=== PATIENT | male | born 1955 | race Caucasian/White ===

== ENCOUNTER 2021-02-26 13:53 | Inpatient (IN) | payer MEDICARE, MEDICAID ==
[2021-02-26 15:26] LABS: ALT (SGPT) 34 U/L (8-55); AST (SGOT) 30 U/L (5-34); Albumin 3.9 g/dL (3.4-4.8); Alkaline Phosphatase 70 U/L (40-110); Anion Gap 17 mmol/L (10-20); BUN (Urea Nitrogen) 40 mg/dL (8.4-25.7); Bilirubin, Total 0.4 mg/dL (0.2-1.2); Calc. Creatinine Clearance 0 mL/min (70-130); Calcium 9.4 mg/dL (7.8-10.44); Carbon Dioxide 26 mmol/L (23-31); Chloride 97 mmol/L (98-107); Globulin 3.2 g/dL (2.4-3.5); Glucose 183 mg/dL (80-115); Potassium 4.6 mmol/L (3.5-5.1); Protein, Total 7.1 g/dL (5.8-8.1); Sodium 135 mmol/L (136-145)
[2021-02-26 15:56] LABS: #Eosinphils 0.2 10x3/uL (0.0-0.5); #Monocytes 0.4 10x3/uL (0.0-1.1); #Neutrophils 3.3 10x3/uL (1.5-8.4); %Basophils 0.2 % (0.0-2.0); %Lymphocytes 23.3 % (18.0-47.0); %Monocytes 8.2 % (0.0-10.0); %Neutrophils 65.1 % (40.0-75.0); Hemoglobin 11.8 g/dL (13.5-17.5); Mean Corpuscular HGB CONC 33.4 g/dL (32.0-36.0); Mean Corpuscular Hemoglobin 29.1 pg (27.0-33.0); Mean Corpuscular Volume 87.2 fl (81.2-95.1); Mean Platelet Volume 10.4 fl (7.4-10.4); Platelet Count 83 10x3/uL (150-450); RBC Distribution Width 14.2 % (11.5-14.5); Red Blood Cell (RBC) Count 4.05 10x6/uL (4.32-5.72)
[2021-02-26] MEDS ORDERED: Acetaminophen 325 MG TAB PO PRN (17:12)
[2021-02-26] MEDS ORDERED: Senokot S 8.6-50 MG TAB PO PRN (17:12)
[2021-02-26] MEDS ORDERED: Ondansetron PF 4 MG/2 ML Vial IVP PRN (17:12)
[2021-02-26] MEDS ORDERED: Aspirin 325 MG TAB ONE (18:09)
[2021-02-26] MEDS ORDERED: Dextrose 5% in Water 1,000 ML IV PRN (18:17)
[2021-02-26] MEDS ORDERED: HumaLOG 300 UNITS/3 ML VIAL SC PRN (18:17)
[2021-02-26] MEDS ORDERED: Dextrose 50% Abboject 50 ML SYRINGE SLOW IVP PRN (18:17)
[2021-02-26 18:47] LABS: Troponin I Less than 0.010 ng/mL (< 0.028)
[2021-02-26] MEDS ORDERED: hydrALAZINE 20 MG/ML VIAL SLOW IVP PRN (18:57)
[2021-02-26 21:22] LABS: Troponin I 0.013 ng/mL (< 0.028)
[2021-02-26] MEDS: Atorvastatin Calcium 40 MG TAB PO SCH (22:15)
[2021-02-26] MEDS: Sodium Chloride 0.9% 1,000 ML IV SCH (22:15)
[2021-02-26] MEDS: HumaLOG 300 UNITS/3 ML VIAL SC PRN (23:39)
[2021-02-27 06:09] VITALS: BMI 23.8
[2021-02-27] MEDS: HumaLOG 300 UNITS/3 ML VIAL SC PRN (06:28)
[2021-02-27 06:58] LABS: #Eosinphils 0.2 10x3/uL (0.0-0.5); #Monocytes 0.3 10x3/uL (0.0-1.1); %Basophils 0.3 % (0.0-2.0); %Eosinophils 5.4 % (0.0-6.0); %Lymphocytes 28.5 % (18.0-47.0); %Monocytes 8.3 % (0.0-10.0); %Neutrophils 57.2 % (40.0-75.0); Hemoglobin 12.2 g/dL (13.5-17.5); Mean Corpuscular Volume 88.1 fl (81.2-95.1); Platelet Count 76 10x3/uL (150-450); RBC Distribution Width 14.5 % (11.5-14.5); White Blood Cell (WBC) Count 3.5 10x3/uL (3.5-10.5)
[2021-02-27 07:12] LABS: ALT (SGPT) 32 U/L (8-55); AST (SGOT) 27 U/L (5-34); Albumin 3.5 g/dL (3.4-4.8); Alkaline Phosphatase 65 U/L (40-110); Anion Gap 16 mmol/L (10-20); BUN (Urea Nitrogen) 35 mg/dL (8.4-25.7); Bilirubin, Total 0.3 mg/dL (0.2-1.2); Calc. Creatinine Clearance 58 mL/min (70-130); Calcium 9.1 mg/dL (7.8-10.44); Carbon Dioxide 24 mmol/L (23-31); Chloride 101 mmol/L (98-107); Cholesterol 173 mg/dl (< 200 Desired); Globulin 3.1 g/dL (2.4-3.5); Glucose 159 mg/dL (80-115); HDL Cholesterol 43 mg/dL (>60 Neg Risk); LDL Cholesterol, Calculated 97 mg/dL; Potassium 4.3 mmol/L (3.5-5.1); Protein, Total 6.6 g/dL (5.8-8.1); Sodium 137 mmol/L (136-145); Triglycerides 167 mg/dL (Less than 150)
[2021-02-27] MEDS: Sodium Chloride 0.9% 1,000 ML IV SCH ×2 (07:33→08:38)
[2021-02-27] MEDS: Enoxaparin Sodium 40 MG/0.4 ML SYRINGE SC SCH (08:38)
[2021-02-27] MEDS: Aspirin 81 mg Enteric Coated Tablet PO SCH (08:38)
[2021-02-27] MEDS ORDERED: Nicotine 21 MG PATCH TD SCH (11:00)
[2021-02-27 11:31] LABS: Hemoglobin A1c 6.1 % (4.0-6.0)
[2021-02-27 14:45] LABS: Anion Gap 11 mmol/L (10-20); BUN (Urea Nitrogen) 30 mg/dL (8.4-25.7); Calc. Creatinine Clearance 70 mL/min (70-130); Calcium 8.8 mg/dL (7.8-10.44); Carbon Dioxide 28 mmol/L (23-31); Chloride 99 mmol/L (98-107); Glucose 174 mg/dL (80-115); Potassium 5.2 mmol/L (3.5-5.1); Sodium 133 mmol/L (136-145)
[2021-02-27] MEDS: Atorvastatin Calcium 40 MG TAB PO SCH (20:49)
[2021-02-28 06:05] LABS: Anion Gap 12 mmol/L (10-20); BUN (Urea Nitrogen) 24 mg/dL (8.4-25.7); Calc. Creatinine Clearance 81 mL/min (70-130); Calcium 8.8 mg/dL (7.8-10.44); Carbon Dioxide 27 mmol/L (23-31); Chloride 101 mmol/L (98-107); Glucose 119 mg/dL (80-115); Potassium 4.5 mmol/L (3.5-5.1); Sodium 135 mmol/L (136-145)
[2021-02-28 06:22] LABS: #Eosinphils 0.2 10x3/uL (0.0-0.5); #Monocytes 0.3 10x3/uL (0.0-1.1); #Neutrophils 2.7 10x3/uL (1.5-8.4); %Basophils 0.5 % (0.0-2.0); %Eosinophils 4.1 % (0.0-6.0); %Lymphocytes 25.5 % (18.0-47.0); %Monocytes 7.4 % (0.0-10.0); %Neutrophils 62.3 % (40.0-75.0); Hemoglobin 11.6 g/dL (13.5-17.5); Mean Corpuscular HGB CONC 32.8 g/dL (32.0-36.0); Mean Corpuscular Hemoglobin 28.7 pg (27.0-33.0); Mean Corpuscular Volume 87.6 fl (81.2-95.1); Mean Platelet Volume 11.5 fl (7.4-10.4); RBC Distribution Width 14.2 % (11.5-14.5); Red Blood Cell (RBC) Count 4.04 10x6/uL (4.32-5.72); White Blood Cell (WBC) Count 4.4 10x3/uL (3.5-10.5)
[2021-02-28 07:26] LABS: Platelet Count 83 10x3/uL (150-450)
[2021-02-28] MEDS: Enoxaparin Sodium 40 MG/0.4 ML SYRINGE SC SCH (08:30)
[2021-02-28] MEDS: Aspirin 81 mg Enteric Coated Tablet PO SCH (08:31)
[2021-02-28] MEDS ORDERED: Nicotine 21 MG PATCH TD SCH (09:00)
[2021-02-28 12:03] VITALS: TEMP 97.9
[2021-02-28 12:15] VITALS: BP 152/75
== END 2021-02-28 13:27 | disposition home or self-care (01) | DRG 682 ==
LOC: CSHERS 13:53 → CSHTELE 17:08 → UNDOADMOB 20:05 → INTOOBSV 20:05 → CSHTELE 20:05 → OBSVTOIN 02-27 15:08
PROVIDERS: ADMIT Internal Medicine; ATTEND Internal Medicine
DX: N17.9 Acute kidney failure, unspecified (principal); G93.6 Cerebral edema; C79.31 Secondary malignant neoplasm of brain; C34.92 Malignant neoplasm of unspecified part of left bronchus or lung; C34.91 Malignant neoplasm of unspecified part of right bronchus or lung; E44.0 Moderate protein-calorie malnutrition; E86.0 Dehydration; E11.9 Type 2 diabetes mellitus without complications; Z66 Do not resuscitate; E78.5 Hyperlipidemia, unspecified; J44.9 Chronic obstructive pulmonary disease, unspecified; I12.9 Hypertensive chronic kidney disease with stage 1 through stage 4 chronic kidney disease, or unspecified chronic kidney disease; E11.22 Type 2 diabetes mellitus with diabetic chronic kidney disease; N18.9 Chronic kidney disease, unspecified; F12.20 Cannabis dependence, uncomplicated; Z88.0 Allergy status to penicillin; Z88.8 Allergy status to other drugs, medicaments and biological substances; Z86.718 Personal history of other venous thrombosis and embolism
CPT/HCPCS: 36415; 36416; 70450; 70553; 71045; 71275; 80048; 80053; 80061; 83036; 84484; 85025; 93005; 93010; 93306; 93880; 96372; G0378; J1650; J1815; J7050